=== PATIENT | female | born 1965 | race Caucasian/White ===

== ENCOUNTER 2016-11-01 08:43 | Emergency (ER) | payer OTHER ==
[~2016-11-01] VITALS: Ht 162.6 cm; Wt 65.8 kg
[2016-11-01 09:10] LABS: ABSOLUTE NEUTROPHILS 5.3 thou/uL (1.4-8.2); EOSINOPHILS 1.5 % (0.0-3.0); HEMATOCRIT 42.3 % (37.0-47.0); HEMOGLOBIN 14.4 gm/dL (12.0-15.0); LYMPHOCYTES 17.3 % (24.0-44.0); MANUAL DIFF NO; MCH 30.8 pg (26.0-34.0); MCV 90.8 fL (80.0-100.0); MONOCYTES 4.7 % (1.0-8.0); PLATELET COUNT 183 thou/uL (150-400); POLYS 75.5 % (36.0-66.0); RBC 4.66 mil/uL (4.20-5.00); RDW 13.3 % (10.5-14.5)
[2016-11-01 09:15] LABS: URINE BILIRUBIN NEGATIVE (Negative); URINE BLOOD TRACE (Negative); URINE COLOR YELLOW; URINE GLUCOSE-RANDOM* NEGATIVE (Negative); URINE KETONES NEGATIVE (Negative); URINE NITRITE NEGATIVE (Negative); URINE PROTEIN (DIPSTICK) NEGATIVE (Negative); URINE UROBILINOGEN 0.2 E.U./dl (0.2-1.0)
[2016-11-01 09:18] LABS: ANION GAP 8 mmol/L (7-16); BUN 14 mg/dL (7-18); CHLORIDE 107 mmol/L (98-107); CO2 25 mmol/L (21-32); CREATININE 0.7 mg/dL (0.6-1.0); GLUCOSE 94 mg/dL (74-106); POTASSIUM 4.3 mmol/L (3.5-5.1); SODIUM 140 mmol/L (136-145)
[2016-11-01 09:22] LABS: ALBUMIN 3.9 g/dL (3.4-5.0); ALKALINE PHOSPHATASE 48 U/L (46-116); DIRECT BILIRUBIN < 0.1 mg/dL (<0.1-0.3); SGOT 15 U/L (15-37); SGPT 18 U/L (30-65); TOTAL BILIRUBIN 0.3 mg/dL (<0.1-1.0)
[2016-11-01 10:35] LABS: BACTERIA >30 Many /HPF (None Seen); CASTS None Seen /LPF (None Seen); CRYSTALS None Seen /LPF (None Seen); SQUAMOUS >10 Many /LPF (0-3); URINE RBC 0-2 Rare /HPF (0-2)
[2016-11-01] MEDS ORDERED: IBUPROFEN 600600 M1 PO (10:43)
[2016-11-01] MEDS ORDERED: CIPRO500 MG PO (10:43)
[2016-11-01 11:05] VITALS: BP 97/67
== END 2016-11-01 11:07 | disposition home or self-care (01) ==
LOC: ER 08:43
PROVIDERS: Nurse Practitioner
DX: N83.201 Unspecified ovarian cyst, right side (principal)

== ENCOUNTER → 2019-01-04 | Outpatient (CLI) | payer BC, OTHER ==
[~2019-01-04] MED LIST: CIPRO500 MG PO; IBUPROFEN 600600 M1 PO
== END ==
LOC: RAD 02:59
DX: Z12.31 Encounter for screening mammogram for malignant neoplasm of breast (principal)

== ENCOUNTER → 2019-01-12 | Outpatient (CLI) | payer BC | LOC: ULTRA 01:09 | DX: R92.2 Inconclusive mammogram (principal) ==

== ENCOUNTER → 2021-06-10 | Outpatient (CLI) | payer OTHER | LOC: CAT 12:31 | PROVIDERS: ATTEND Radiology Diagnostic Radiology | DX: Z13.6 Encounter for screening for cardiovascular disorders (principal); I25.10 Atherosclerotic heart disease of native coronary artery without angina pectoris; E78.00 Pure hypercholesterolemia, unspecified ==